=== PATIENT | male | born 1970 | race Caucasian/White ===

== ENCOUNTER 2017-05-09 08:40 | Inpatient (IN) | payer OTHER ==
[2017-05-09] MEDS ORDERED: Ondansetron INJ* 2 MG/ML VIAL IV ONE (09:01)
[2017-05-09] MEDS ORDERED: Morphine INJ* 10 MG/ML 1 ML CARPUJECT IV ONE (09:01)
[2017-05-09] MEDS ORDERED: NS 0.9% 1000 ML* 1,000 ML IV ONE (09:01)
[2017-05-09 09:26] LABS: ABS Basophils 0.1 10^3/ul (0-0.2); ABS Eosinophils 0.3 10^3/ul (0-0.6); ABS Lymphocytes 1.2 10^3/ul (1.0-4.8); ABS Monocytes 0.5 10^3/ul (0-0.8); ABS Neutrophils 5.1 10^3/ul (1.5-7.7); ABS Nucleated RBC 0 10^3/ul; Eosinophil % 4.2 % (0-6); Hematocrit 43 % (42-52); Hemoglobin 14.9 g/dl (14.0-18.0); Lymphocyte % 17.2 % (25-47); Mean Corpuscular HGB Conc 34 g/dl (31-36); Mean Corpuscular Hemoglobin 33 pg (27-31); Mean Corpuscular Volume 96 fL (80-94); Mean Platelet Volume 8.2 um3 (7.4-10.4); Nucleated Red Blood Cells % 0; Platelet Count 242 10^3/ul (150-450); Red Cell Distribution Width 13 % (10.5-15); White Blood Count 7.2 10^3/ul (3.5-10.8)
[2017-05-09 09:45] LABS: EGFR Non-African American 128.8 (>60)
[2017-05-09] MEDS ORDERED: Iohexol 300* (CONTRAST) 10 ML SDV IV ONE (09:56)
[2017-05-09 11:23] LABS: Urine Appearance Clear; Urine Blood 1+ (Negative); Urine Color Yellow; Urine Ketones 1+ (Negative); Urine Protein Negative (Negative); Urine Specific Gravity 1.011 (1.010-1.030); Urine Urobilinogen Negative (Negative)
--- NOTE | 2017-05-09 11:49 | RAD ---
Indication: Abdominal pain. Contrast: Administered 100.2 ml of OMNIPAQUE 300 mg/ml CT of the abdomen and pelvis was performed after oral and IV contrast administration. Coronal and sagittal reconstructed images were obtained. Comparison is made with the previous exam dated December 15, 2015. Lung bases demonstrate no pleural fluid, nodules or masses. Heart is of normal size without evidence of pericardial effusion. Liver is normal in size. No focal lesions or intrahepatic ductal dilatation is noted. Spleen is normal in size. The gallbladder demonstrates no calcified gallstones. No adrenal masses are noted. The kidneys demonstrate symmetric nephrograms without hydronephrosis. There are enlarging cystic masses which have increased in size since previous examination predominantly within the pancreatic head. Pancreatic calcifications are noted. Pancreatic duct dilatation is noted. The largest of these is noted in the uncinate process measuring up to 7.9 cm. This previously measured up to 4.5 cm. In the pancreatic head cystic lesions measures up to 6.8 and 5.5 cm which is also increased in size since previous exam. Aorta and inferior vena cava are unremarkable. No retroperitoneal lymphadenopathy is noted. CT of the pelvis demonstrates no dilated loops of bowel. The colon is filled with stool. The prostate and seminal vesicles are unremarkable. The bony structures are grossly unremarkable. IMPRESSION: Cystic lesions in the pancreatic head and uncinate process has increased in size since previous exam. Extensive pancreatic calcifications pancreatic duct dilatation is noted. This may represent pancreatic pseudocyst although cystic neoplasm is not totally excluded. This is superimposed upon chronic pancreatitis. Clinical correlation is suggested as these are enlarging since previous exam of 2015. No evidence of cholelithiasis is noted.
[2017-05-09] MEDS ORDERED: Morphine INJ* 2 MG/ML 1 ML CARPUJECT IV PRN (13:49)
[2017-05-09] MEDS ORDERED: Acetaminophen TAB* 325 MG PO PRN (13:49)
[2017-05-09] MEDS: NS 0.9% 1000 ML* 1,000 ML IV SCH ×2 (14:53→23:33)
[2017-05-09] MEDS ORDERED: Mouth Piece, Nicotine* 1 EACH CARTRIDGE INH PRN (17:18)
[2017-05-09] MEDS ORDERED: Docusate CAP* 100 MG PO PRN (17:20)
[2017-05-09] MEDS ORDERED: Magnesium Hydroxide LIQ* 30 ML UDC PO ONE (17:20)
[2017-05-09] MEDS ORDERED: Ondansetron INJ* 2 MG/ML VIAL IV PRN (18:08)
[2017-05-09] MEDS: Morphine INJ* 2 MG/ML 1 ML CARPUJECT IV PRN ×2 (18:10→22:21)
[2017-05-09] MEDS: Nicotine Inhaler* 10 MG AMP INH PRN ×2 (18:10→21:17)
[2017-05-09] MEDS: Docusate CAP* 100 MG PO SCH (21:12)
[2017-05-09] MEDS: Senna TAB PO SCH (21:13)
[2017-05-09] MEDS: Omeprazole CAP* 20 MG PO SCH (21:14)
--- NOTE | 2017-05-09 21:32 | HP ---
CC: Dr. Stevens * HISTORY AND PHYSICAL: DATE OF ADMISSION: 05/09/17 PRIMARY CARE PROVIDER: Unknown. CHIEF COMPLAINT: Abdominal pain. HISTORY OF PRESENT ILLNESS: Matheus Zarate is a 46-year-old male with history of chronic pancreatitis due to alcoholism as well as pancreatic pseudocyst for which the last time he was evaluated in the emergency department and admitted in 2015, who presented to the hospital today complaining of abdominal pain. The patient stated that he was drinking up to 2 pints of vodka a day, quit 6 weeks ago and started drinking beer only. The last time he drank 2 beers was 2 days ago. He stated that over the past 10 days he has been having intermittent nausea and vomiting, sensation of abdominal fullness and diffuse abdominal pain. He stated that he felt like he was constipated, but he had a bowel movement 2 days ago which appeared of normal brown coloring, but "grainy." Despite that he still continued to have diffuse abdominal pain and presented for evaluation. Here his lipase and amylase is elevated. His CT of the abdomen shows large pancreatic pseudocyst at over 7 cm, enlarged from prior in 2016 when it was evaluated at 4 cm. The patient is going to be placed on overnight observation with a diagnosis of acute on chronic pancreatitis. PAST MEDICAL HISTORY: 1. History of alcoholic pancreatitis with pancreatic pseudocyst in the past. 2. History of alcohol abuse. MEDICATIONS: None. ALLERGIES: No known drug allergies. FAMILY HISTORY: The patient is adopted. SOCIAL HISTORY: The patient has been an alcoholic and he drinks up to 1 to 2 pints of vodka a day and smokes less than a pack a day. He has been smoking for over 30 years. His surrogate decision person is his father, Bereket. The patient lives alone and is self employed as a prabhakar. REVIEW OF SYSTEMS: Please see history of present illness. All the remaining 12 systems were reviewed with the patient and were otherwise negative. PHYSICAL EXAMINATION GENERAL: The patient is a very pleasant 46-year-old male who is in no acute distress. Alert, awake and oriented x3. VITAL SIGNS: Blood pressure 130/80, heart rate 66 and regular, respiratory rate 18, oxygen saturation 99% on room air, temperature of 97.1. HEENT: Head: Atraumatic, normocephalic. Eyes: Pupils are equal, and reactive to light and accommodation. Oropharynx clear. Mucosa moist. NECK: Supple. No JVD. No bruits bilaterally. RESPIRATORY: Clear to auscultation bilaterally. CARDIOVASCULAR: Regular rate and rhythm. No murmur. ABDOMEN: Soft, diffusely tender mostly in the bilateral lower quadrants with no rebound, no guarding. Bowel sounds are present in all 4 quadrants. There is a small umbilical hernia on palpation that is nontender. The patient also has a rather large right inguinal hernia nontender to palpation. I did not attempt to reduce it. EXTREMITIES: There is no edema. Pulses are +2 bilaterally. There is no clubbing or cyanosis. SKIN: On evaluation of the skin, no ecchymotic areas or rashes noted. PSYCHIATRIC: Alert and oriented x3 with no evidence of anxiety or depression. LABORATORY DATA/DIAGNOSTIC STUDIES: Shows sodium 136, potassium 4.1, chloride 104, carbon dioxide 24, BUN 6, creatinine 0.66. Liver function tests were unremarkable. The patient's lipase was 448 and amylase of 188. CBC: White blood cell count 7.2, hemoglobin 14.9, hematocrit 43 and platelets of 242,000. Urinalysis positive for casts, squamous epithelial cells, trace blood and ketones. INR was 1.18. CT of the abdomen and pelvis, impression; "cystic lesions in the pancreatic head and uncinate process has increased in size since previous exam. Extensive pancreatic calcifications and pancreatic duct dilatation is noted. There is no present pancreatic pseudocyst, although cystic neoplasm is not totally excluded. This is superimposed upon chronic pancreatitis. Clinical correlation suggested as these are enlarging since previous exam in 2016. No evidence of cholelithiasis is noted." Furthermore, in the body of the report it was noted that previously the cyst measured 4.5 cm and currently is measuring 7.9 cm. The patient's EKG showed normal sinus bradycardia with heart rate of 54 beats per minute with J-point elevation. Otherwise, no significant ST changes. There was no old EKG available for comparison. ASSESSMENT AND PLAN: 1. In regards to the patient's alcohol abuse, the patient stated that he last drank beer 2 days ago, but he actually stopped drinking hard alcohol 6 weeks ago. At this point, I will ask social work job titles to see the patient in consultation. He has no symptoms of withdrawal. 2. In regards to patient's acute on chronic pancreatitis, the patient has extensive calcifications from his pancreas and his cyst is enlarged to almost double the size comparing to 2016. There is a question of possibility of malignancy. At this point, I will ask Dr. Stevens from Gastroenterology to see the patient in consultation. To treat the patient's chronic acute on chronic pancreatitis, patient is going to be placed on clear liquid diet with pain control. We will repeat lipase measurements in the morning. 3. Tobacco cessation. The patient was placed on a nicotine patch and he was consulted in regards to quitting for approximately 4 to 5 minutes during his admission. 4. For DVT prophylaxis, the patient is encouraged with ambulation and is low risk. TIME SPENT: Approximately 65 minutes was spent on admission of this patient, more than half that time was spent [id number] with the patient during the interview and physical exam. [id number]/[facility] #: [id number] JENNIFER
[2017-05-10] MEDS: Morphine INJ* 2 MG/ML 1 ML CARPUJECT IV PRN ×3 (04:07→22:07)
[2017-05-10] MEDS: Nicotine Inhaler* 10 MG AMP INH PRN ×4 (04:11→20:30)
[2017-05-10 05:20] LABS: ABS Basophils 0 10^3/ul (0-0.2); ABS Eosinophils 0.7 10^3/ul (0-0.6); ABS Lymphocytes 1.5 10^3/ul (1.0-4.8); ABS Monocytes 0.4 10^3/ul (0-0.8); ABS Neutrophils 2.3 10^3/ul (1.5-7.7); ABS Nucleated RBC 0 10^3/ul; Eosinophil % 14.5 % (0-6); Hematocrit 42 % (42-52); Hemoglobin 14.2 g/dl (14.0-18.0); Lymphocyte % 30.5 % (25-47); Mean Corpuscular HGB Conc 34 g/dl (31-36); Mean Corpuscular Hemoglobin 33 pg (27-31); Mean Corpuscular Volume 97 fL (80-94); Mean Platelet Volume 8.3 um3 (7.4-10.4); Nucleated Red Blood Cells % 0; Platelet Count 221 10^3/ul (150-450); Red Blood Count 4.31 10^6/ul (4.0-5.4); Red Cell Distribution Width 13 % (10.5-15); White Blood Count 4.9 10^3/ul (3.5-10.8)
[2017-05-10 05:35] LABS: EGFR Non-African American 128.8 (>60)
[2017-05-10] MEDS: Docusate CAP* 100 MG PO SCH ×2 (08:24→20:31)
[2017-05-10] MEDS: Omeprazole CAP* 20 MG PO SCH ×2 (08:24→20:30)
[2017-05-10] MEDS ORDERED: Nicotine PATCH 14 MG/24 HR* PATCH TRANSDERM SCH (09:00)
--- NOTE | 2017-05-10 11:39 | PN ---
Subjective Date of Service: 05/10/17 Interval History: HOSPITALIST PROGRESS NOTE Patient seen and examined at bedside. He feels a little better today. Abdominal pain is still present, but less intense. Tolerating clear liquids. Does not want to advance diet as he had setbacks in the past when he advanced to solid diet too fast. Denies N/V, +BM. Family History: Unchanged from Admission Social History: Unchanged from Admission Past Medical History: Unchanged from Admission Objective Active Medications: Acetaminophen (Tylenol Tab*) 650 mg PO Q6H PRN PRN Reason: FEVER/PAIN Device (Nicotine Mouth Piece*) 1 each INH .USE WITH NICOTROL PRN PRN Reason: CRAVING Last Admin: 05/09/17 18:09 Dose: 1 each Docusate Sodium (Colace Cap*) 100 mg PO BID [facility] Last Admin: 05/10/17 08:24 Dose: 100 mg Morphine Sulfate (Morphine Inj (Syringe)*) 2 mg IV Q4H PRN PRN Reason: PAIN Last Admin: 05/10/17 08:24 Dose: 2 mg Nicotine (Nicotine Inhaler*) 10 mg INH Q2H PRN PRN Reason: CRAVING Last Admin: 05/10/17 08:24 Dose: 10 mg Omeprazole (Prilosec Cap*) 20 mg PO BID [facility] Last Admin: 05/10/17 08:24 Dose: 20 mg Ondansetron HCl (Zofran Inj*) 4 mg IV Q6H PRN PRN Reason: NAUSEA/VOMITING Pharmacy Profile Note (Nicotine Patch Removal Note*) 1 note PATCH OFF 2100 [facility] Senna (Senokot Tab*) 2 tab PO BEDTIME [facility] Last Admin: 05/09/17 21:13 Dose: 2 tab Vital Signs - 8 hr 05/10/17 05/10/17 05/10/17 04:02 04:07 05:07 Temperature 97.3 F Pulse Rate 74 Respiratory 16 16 16 Rate Blood Pressure 139/89 (mmHg) O2 Sat by Pulse 98 Oximetry 05/10/17 05/10/17 07:41 08:24 Temperature 98.3 F Pulse Rate 78 Respiratory 16 16 Rate Blood Pressure 122/84 (mmHg) O2 Sat by Pulse 98 Oximetry Oxygen Devices in Use Now: None Appearance: Pleasant gentleman sitting up in bed in NAD. Eyes: No Scleral Icterus Ears/Nose/Mouth/Throat: Mucous Membranes Moist Neck: Trachea Midline Respiratory: Symmetrical Chest Expansion and Respiratory Effort, Clear to Auscultation Cardiovascular: NL Sounds; No Murmurs; No JVD, RRR Abdominal: - - Soft, mild diffuse tenderness, NG, NR, BS+ and increased, mild distension. R inguinal hernia, non tender Extremities: No Edema Neurological: Alert and Oriented x 3, NL Muscle Strength and Tone Result Diagrams: 05/10/17 05:06 05/10/17 05:06 Assess/Plan/Problems-Billing Assessment: Mr. Zarate is a 46yo M with PMH of ETOH abuse, chronic pancreatitis, who presented to ED wt c/o abdominal pain, found to have acute on chronic pancreatitis. - Patient Problems (1) Pancreatitis Comment: - Alcohol related. - Lipase trending down, symptoms improving, but patient reluctant to advance his diet at this point. - Continue pain management. (2) Pseudocyst of pancreas Code(s): K86.3 - PSEUDOCYST OF PANCREAS SNOMED Code(s): 645669480 Comment: - CT showed increase in size of cystic lesion since December 2015. Likely a pseudocyst, but cannot r/o cystic neoplasm. - Check MRCP. - GI consult requested. (3) ETOH abuse Code(s): F10.10 - ALCOHOL ABUSE, UNCOMPLICATED Comment: - He continues to drink. - No signs of withdrawal at this time. (4) DVT prophylaxis Comment: - SQ heparin. (5) Full code status Status and Disposition: Inpatient for management of pancreatitis.
[2017-05-10] MEDS: Heparin VIAL(*) 5000 UNITS/ML VIAL (FIVE THOUSAND) SUBCUT SCH ×2 (14:49→21:27)
--- NOTE | 2017-05-10 15:13 | RAD ---
HISTORY: MRI clearance. COMPARISON: None. FINDINGS: Frontal and lateral views of the orbits. There is no radiopaque foreign body attributable to the orbits. The orbital rims are intact. The sinuses are clear. The zygomatic arches are normal. IMPRESSION: No radiopaque foreign body attributable to the orbits.
--- NOTE | 2017-05-10 16:10 | RAD ---
Indication: Chronic pancreatitis. Image sequences: Axial and coronal T2, coronal 3-D heavily weighted T2-weighted images were obtained. There is marked pancreatic duct enlargement. Dilated side branches are noted. There may be a filling defect in the pancreatic duct measuring 3 mm. Calculi is not excluded. There are multiple cystic lesions in the pancreatic head. The measure approximately 6.1 cm, 7.1 cm and displaces enlarges the pancreatic head. The duodenum is displaced laterally. The common bile duct and common hepatic duct are not dilated. The liver is otherwise unremarkable. IMPRESSION: Marked pancreatic duct dilatation with dilated sidebranches as well. At least 3 large cysts are noted in the pancreatic head the largest measuring up to 7.1 cm with displacement of the duodenum towards the right. There may be calculi several pancreatic ducts.
--- NOTE | 2017-05-10 16:55 | CONS ---
CC: Dr. Medina GASTROENTEROLOGY CONSULTATION: DATE OF CONSULT: 05/10/17 REFERRING PHYSICIAN: Dr. Medina. HISTORY OF PRESENT ILLNESS: Thank you for asking me to see Mr. Zarate. As you know, he is a 46-year -old male with a history of alcohol abuse, who has had pancreatitis in the past. He was most recentl y hospitalized in 2016 with acute pancreatitis on top of chronic pancreatitis with a 4-cm pseudocyst noted on abdominal CAT scan. The patient states that he has been intermittently drinking since his l ast hospitalization up to 2 pints of vodka a day, but quit several weeks ago and has been drinking be er intermittently since. Apparently, over the past week or so, he has had some nausea, vomiting, and diffuse abdominal pain. He presented to the emergency room with ongoing issues and was noted to hav e an elevated lipase of 448 with an amylase of 188. The patient was placed on clear liquids. CT sca n of the abdomen revealed cystic lesions in the head and uncinate process of the pancreas, the larges t measuring 7 cm, extensive pancreatic calcifications consistent with chronic pancreatitis. The hudson ent states today that he is feeling much better. His amylase is down to 175. His vital signs have b een stable. There has been no fever. I have discussed the case with Dr. Medina and MRCP has been or dered for today to better delineate the pancreas. PAST MEDICAL HISTORY: Significant for chronic pancreatitis including pancreatic pseudocyst, history of alcohol abuse. MEDICATIONS: No medications at home. ALLERGIES: No known drug allergies. FAMILY HISTORY: Unknown as the patient is adopted. SOCIAL HISTORY: The patient is a smoker. He lives alone. Alcohol, as above. REVIEW OF SYSTEMS: A 10-point review of systems is performed and is negative. PHYSICAL EXAM: Mr. Zarate is a well appearing 46-year-old male. Temperature is 98.9, heart rate is 70, blood pressure 116/84. HEENT: There is no scleral icterus. Heart: Regular rate and rhythm. L ungs: Clear. Abdomen: Soft. There is mild tenderness in the epigastric and left and right upper q uadrant regions. Bowel sounds are present. There is no distention. Skin: Warm and dry. Neuro Exam : Grossly intact. Alert and oriented x3. LABORATORY DATA: Pertinent laboratory studies include normal liver function tests. Albumin of 3.5, l ipase of 175. BUN of 5 and creatinine of 0.6. Hematocrit of 42. IMPRESSION AND PLAN: Mr. Zarate has mild acute on chronic pancreatitis. He does have 3 pseudocysts noted, which have enlarged since prior CT scan back in 2016 and multiple pancreatic calcifications co nsistent with chronic pancreatitis. He is currently on clear liquids without increasing pain and wit h improvement in his lipase. I will continue clear liquids probably until noon tomorrow and then try to advance to low-fat diet. The patient will ultimately need to be set up for endoscopic ultrasound in [facility] to confirm the absence of any type of malignancy or neoplastic cells. The patient will be set up with the primary care physician, who may then either directly refer the patien t for EUS or refer to GI as an outpatient to make arrangements. [id number]/[facility] #: [id number]
[2017-05-10] MEDS: Senna TAB PO SCH (20:32)
[2017-05-10] MEDS ORDERED: Nicotine Patch Removal NOTE PATCH OFF SCH (21:00)
[2017-05-11] MEDS: Heparin VIAL(*) 5000 UNITS/ML VIAL (FIVE THOUSAND) SUBCUT SCH ×2 (05:41→14:21)
[2017-05-11 05:49] LABS: EGFR Non-African American 131.1 (>60)
[2017-05-11] MEDS: Omeprazole CAP* 20 MG PO SCH (07:40)
[2017-05-11] MEDS: Nicotine Inhaler* 10 MG AMP INH PRN (07:40)
[2017-05-11] MEDS: Docusate CAP* 100 MG PO SCH (07:41)
[2017-05-11 16:04] VITALS: BP 111/81
--- NOTE | 2017-05-12 07:46 | ED ---
Isauro Arredondo Angela, scribed for Stanley López MD on 05/09/17 at 0854 . Abdominal Pain/Male - HPI Summary HPI Summary: This pt is a 46 y/o male presenting to [facility] c/o intermittent left sided abd pain x10 days, worsening over the past 2 days. Pt has history of pancreatitis. Pt reports nausea and vomiting. He notes he has been unable to sleep or eat secondary to pain. He currently rates his pain 5/10 in severity and describes it as waxing and waning. Pt quit drinking alcohol 2 months ago. Denies drinking alcohol since then. PMHx includes inguinal hernia, worsening for the past month. - History of Current Complaint Chief Complaint: EDAbdPain Stated Complaint: ABD PAIN Time Seen by Provider: 05/09/17 08:47 Hx Obtained From: Patient Onset/Duration: Lasting Days, Still Present, Worse Since - 2 days ago Timing: Lasting Days Severity Currently: Moderate Pain Intensity: 5 Pain Scale Used: 0-10 Numeric Location: Other - left sided Radiates: No Aggravating Factor(s): Nothing Alleviating Factor(s): Nothing Associated Signs And Symptoms: Positive: Nausea, Vomiting. Negative: Fever, Diarrhea - Allergies/Home Medications Allergies/Adverse Reactions: Allergies Allergy/AdvReac Type Severity Reaction Status Date / Time No Known Allergies Allergy Verified 05/09/17 08:46 PMH/Surg Hx/FS Hx/Imm Hx GI History: Reports: Other GI Disorders - Pancreatitis Musculoskeletal History: Reports: Hx Arthritis - mild Sensory History: Reports: Hx Contacts or Glasses Opthamlomology History: Reports: Hx Contacts or Glasses Psychiatric History: Reports: Hx Depression, Hx Substance Abuse - Alcohol Denies: Hx Anxiety, Hx Attention Deficit Hyperactivity Disorder, Hx Eating Disorder, Hx Panic Disorder, Hx Post Traumatic Stress Disorder, Hx Inpatient Treatment, Hx Community Mental Health Tx, Hx Schizophrenia, Hx Bipolar Disorder , Hx Suicide Attempt, Hx of Violent Episodes Against Others, Other Psychiatric Issues/Disorders - Immunization History Date of Tetanus Vaccine: unknown Date of Influenza Vaccine: no Infectious Disease History: No Infectious Disease History: Denies: Hx Shingles, Traveled Outside the [place] in Last 30 Days - Family History Known Family History: Positive: Unknown - Pt is adopted - Social History Alcohol Use: Daily Alcohol Amount: last drink monday Substance Use Type: Reports: None Smoking Status (MU): Light Every Day Tobacco Smoker Type: Cigarettes Review of Systems Negative: Fever Eyes: Negative ENT: Negative Positive: Abdominal Pain, Vomiting, Nausea Musculoskeletal: Negative Skin: Negative Neurological: Negative All Other Systems Reviewed And Are Negative: Yes Physical Exam - Summary Physical Exam Summary: VITAL SIGNS: Reviewed. GENERAL: Patient is a well-developed and nourished male who is lying comfortable in the stretcher. Patient is not in any acute respiratory distress. HEAD AND FACE: Normocephalic and atraumatic. EYES: PERRLA, EOMI x 2, No injected conjunctiva. EARS: Hearing grossly intact. Ear canals and tympanic membranes are WNL. MOUTH: Oropharynx within normal limits. NECK: Supple, trachea is midline, no adenopathy, no JVD. CHEST: Symmetric, no tenderness at palpation LUNGS: Clear to auscultation bilaterally. No wheezing or crackles. CVS: RRR, S1 and S2 present, no murmurs or gallops appreciated. ABDOMEN: Soft. Left upper quadrant epigastric tenderness. No signs of distention. Positive bowel sounds. No rebound no guarding, and no masses palpated. No abdominal bruit or pulsations. : Inguinal hernia on the right side, easily reducible. EXTREMITIES: FROM in all major joints, no edema, no cyanosis or clubbing. NEURO: Alert and oriented x 3. No acute neurological deficits. Speech is normal. SKIN: Dry and warm Triage Information Reviewed: Yes Vital Signs On Initial Exam: Initial Vitals Temp Pulse Resp BP Pulse Ox 98.3 F 75 17 149/103 100 05/09/17 08:42 05/09/17 08:42 05/09/17 08:42 05/09/17 08:42 05/09/17 08:42 Vital Signs Reviewed: Yes Diagnostics - Vital Signs Vital Signs Temp Pulse Resp BP Pulse Ox 05/09/17 08:42 98.3 F 75 17 149/103 100 - Laboratory Result Diagrams: 05/09/17 09:05 05/09/17 09:05 Lab Statement: Any lab studies that have been ordered have been reviewed, and results considered in the medical decision making process. - CT Abdomen/Pelvis CT CT Interpretation: Positive (See Comments) - IMPRESSION: Cystic lesions in the pancreatic head and uncinate process has increased in size since previous exam. Extensive pancreatic calcifications pancreatic duct dilatation is noted. This may represent pancreatic pseudocyst although cystic neoplasm is not totally excluded. This is superimposed upon chronic pancreatitis. Clinical correlation is suggested as these are enlarging since previous exam of 2016. No evidence of cholelithiasis is noted. Dr. López has reviewed this radiology report. CT Interpretation Completed By: Radiologist - EKG 09:07 Cardiac Rate: Bradycardia EKG Rhythm: Sinus Bradycardia - at 54 bpm EKG Interpretation: No ST elevations. Early repolarization. Re-Evaluation - Re-Evaluation First Eval Re-Evaluation Time: 11:40 Comment: I reviewed the labs and CT results with the pt. I discussed the plan to admit with the pt. Pt agrees to admission. Abdominal Pain Fem Course/Dx - Course Assessment/Plan: This pt is a 46 y/o male presenting to [facility] c/o intermittent left sided abd pain x10 days, worsening over the past 2 days. Pt has history of pancreatitis. Pt reports nausea and vomiting. He notes he has been unable to sleep or eat secondary to pain. He currently rates his pain 5/10 in severity and describes it as waxing and waning. Pt quit drinking alcohol 2 months ago. Denies drinking alcohol since then. PMHx includes inguinal hernia, worsening for the past month. Test results without any significant abnormalities except for increased amylase and lipase. Abdomen/pelvis CT: Cystic lesions in the pancreatic head and uncinate process has increased in size since previous exam. Extensive pancreatic calcifications pancreatic duct dilatation is noted. This may represent pancreatic pseudocyst although cystic neoplasm is not totally excluded. This is superimposed upon chronic pancreatitis. Clinical correlation is suggested as these are enlarging since previous exam of 2016. In the ED course the pt was given IV fluids, Zofran for nausea, morphine for the pain. Since the pt has acute pancreatitis and pseudocyst in the pancreas, I discussed the case with Dr. Thompson, hospitalist, who accepted the pt for admission. Pt is hemodynamically stable, alert and oriented x3. - Diagnoses Provider Diagnoses: Acute pancreatitis, Pseudocyst of pancreas - Provider Notifications Discussed Care Of Patient With: Yenni Thompson Time Discussed With Above Provider: 11:36 Instructed by Provider To: Other - I discussed pt care with Dr. Thompson, hospitalist, who has agreed to admit the pt. Discharge - Sign-Out/Discharge Documenting (check all that apply): Discharge - admit to [facility] - Discharge Plan Condition: Stable Disposition: ADMITTED TO [facility] documentation as recorded by the Isauro godoy Angela accurately reflects the service I personally performed and the decisions made by , Stanley López MD.
--- NOTE | 2017-05-12 08:51 | DS ---
CC: Dr. Harris; Dr. Delores Trujillo. DISCHARGE SUMMARY: DATE OF ADMISSION: 05/09/17. DATE OF DISCHARGE: 05/11/17. NEW PRIMARY CARE PROVIDER: Dr. Harris. DISCHARGE DIAGNOSES: 1. Acute on chronic pancreatitis. 2. Alcohol abuse. 3. Pancreatic pseudocyst. 4. Tobacco abuse. MEDICATION LIST: 1. Acetaminophen 62 mg p.o. q.6 hours p.r.n. pain or fever. 2. Omeprazole 20 mg p.o. daily. 3. Pancrelipase 24,000 units p.o. t.i.d. with meals. 4. Thiamine 100 mg p.o. daily. HOSPITAL COURSE: Mr. Zarate is a 46-year-old male here with past medical history as stated above alexsander t presented to the emergency room with complaints of abdominal pain. The patient usually drinks two pints of vodka a day. Six weeks ago, he started to drink beers only. He developed abdominal pain 10 days ago with nausea and vomiting and his symptoms worsened and he came to the emergency room for fu rther evaluation. Lab tests showed elevation of his lipase at [address] of the abdomen and pelvis s howed cystic lesions in the pancreatic head and uncinate process that have increased in size since pr evious exam in December 2015. Extensive pancreatic calcifications with pancreatic duct dilatation. T his may represent pancreatic pseudocyst although cystic neoplasm is not totally excluded. This is sup erimposed upon chronic pancreatitis. The patient was admitted, kept NPO and received supportive treatment with IV hydration and pain medic ations. He had improvement of his symptoms. His lipase trended down and he tolerated a clear liquid diet. Due to his CT findings, a consultation was requested with Gastroenterology (Dr. Trujillo) and her recomm endation was for MRCP, that showed marked pancreatic duct dilatation with dilated side branches as we ll. At least three large cysts are noted in the pancreatic head, the largest measuring up to 7.0 cm with displacement of the duodenum towards the right. There may be calculi in several pancreatic duct s. Dr. Trujillo's impression was that Mr. Zarate presented with mild acute on chronic pancreatitis. He does have three pseudocysts noted which have enlarged since prior CT scan back in 2005 and multiple pancreatic calcifications consistent with chronic pancreatitis. She agreed with the management with the clear liquid diet to advance to a low fat and she felt that the patient will ultimately need to b e set up for endoscopic ultrasound in [place] or [place] to confirm the absence of any type of mal ignancy or neoplastic cells. This can be set up by his primary care physician, who may either direct ly refer the patient for endoscopic ultrasound or refer him to her [facility] as an outpatient to make arrangements. The patient had improvement of his symptoms. He was able to tolerate a low-fat diet and he was felt to be stable for discharge. The patient received extensive medication regarding the need for alcohol cessation and he states that he will try. He understands the risks and benefits of his decision and he states that he is not int erested in rehab information at this point. PHYSICAL EXAMINATION: Vital Signs: Temperature 98.3, heart rate is 64, respiratory rate 18, oxygen saturation 99% on room air, blood pressure is 111/81. General: The patient is a pleasant gentleman, sitting up in the bed in no acute distress. CVS: Normal S1, S2. Regular rate and rhythm. Chest: Breath sounds bilaterally with no added sounds. Abdomen is soft with mild distention. Palpable mass on the right upper quadrant, nontender. Bowel sounds are present. Extremities: No edema. Neuro: H e is alert and oriented x3, able to move all 4 extremities. DIET: Low-fat diet. ACTIVITIES: As tolerated. DISPOSITION: To home. STATUS WHILE IN THE HOSPITAL: Inpatient. Please keep in mind, this is a summarized version of this p atient's hospital stay. If you need more information, please feel free to call me at [phone] or please obtain the full medical records. TIME SPENT: Approximately 45 minutes was spent to complete this discharge. [id number]/[facility] #: [id number]
== END 2017-05-11 16:00 | disposition home or self-care (01) | DRG 282 ==
LOC: ED 08:40 → MEDTELE 12:55 → OBSVTOIN 12:55 → INTOOBSV 12:55 → OBSVTOIN 05-10 11:33 → MED 05-10 19:35
PROVIDERS: ADMIT Internal Medicine; ATTEND Internal Medicine
DX: K85.20 Alcohol induced acute pancreatitis without necrosis or infection (principal); K86.3 Pseudocyst of pancreas; K86.0 Alcohol-induced chronic pancreatitis; M19.90 Unspecified osteoarthritis, unspecified site; F32.9 Major depressive disorder, single episode, unspecified; F17.210 Nicotine dependence, cigarettes, uncomplicated; R00.1 Bradycardia, unspecified; F10.10 Alcohol abuse, uncomplicated; Y90.9 Presence of alcohol in blood, level not specified; K40.90 Unilateral inguinal hernia, without obstruction or gangrene, not specified as recurrent
CPT/HCPCS: 36415; 70030; 74177; 74181; 76376; 80053; 81003; 81015; 82150; 82550; 83605; 83690; 83735; 83880; 84484; 85025; 86140; 87040; 87086; 93005; 99284; 99406; A9270-GY; J1644; J2270; J2405; Q9967

== ENCOUNTER 2018-03-19 15:35 | Inpatient (IN) | payer OTHER ==
[2018-03-19] MEDS ORDERED: Morphine VIAL* 10 MG/ML 1 ML VIAL IV ONE ×2 (17:39→18:33)
[2018-03-19] MEDS ORDERED: Ondansetron INJ* 2 MG/ML VIAL IV ONE (17:39)
--- NOTE | 2018-03-19 17:40 | ED ---
GI/ HPI - HPI Summary HPI Summary: 47-year-old female presents with abdominal pain. he states that is feels like he's had pancreatits in the past. He states is greatest in the epigastric region. He states he's not had a bowel movement in 5 days. He states he's had no appetite. He sees been barely able to drink. He denies any urinary symptoms. He admits to nausea but no vomiting. He states it started after he ate some pasta and drank some wine. He states he drinks about twice a week. His only medications he takes are an antacid and enzymes for his pancreas. He denies any chest pain or shortness of breath. No fevers. No cough. - History of Current Complaint Chief Complaint: EDAbdPain Time Seen by Provider: 03/19/18 17:24 Stated Complaint: ABD PAIN Pain Intensity: 10 - Additional Pertinent History Primary Care Physician: [place] - Allergy/Home Medications Allergies/Adverse Reactions: Allergies Allergy/AdvReac Type Severity Reaction Status Date / Time No Known Allergies Allergy Verified 03/19/18 15:55 PMH/Surg Hx/FS Hx/Imm Hx Endocrine/Hematology History: Denies: Hx Diabetes Cardiovascular History: Denies: Hx Hypertension, Hx Pacemaker/ICD GI History: Reports: Other GI Disorders - Pancreatitis History: Denies: Hx Renal Disease Musculoskeletal History: Reports: Hx Arthritis - mild Sensory History: Reports: Hx Contacts or Glasses Denies: Hx Hearing Aid Opthamlomology History: Reports: Hx Contacts or Glasses Psychiatric History: Reports: Hx Depression, Hx Substance Abuse - Alcohol Denies: Hx Anxiety, Hx Attention Deficit Hyperactivity Disorder, Hx Eating Disorder, Hx Panic Disorder, Hx Post Traumatic Stress Disorder, Hx Inpatient Treatment, Hx Community Mental Health Tx, Hx Schizophrenia, Hx Bipolar Disorder , Hx Suicide Attempt, Hx of Violent Episodes Against Others, Other Psychiatric Issues/Disorders - Immunization History Date of Tetanus Vaccine: unknown Date of Influenza Vaccine: no Infectious Disease History: No Infectious Disease History: Denies: Hx Shingles, Traveled Outside the [place] in Last 30 Days - Family History Known Family History: Positive: Unknown - Pt is adopted - Social History Alcohol Use: Daily Alcohol Amount: last drink monday Substance Use Type: Reports: None Smoking Status (MU): Light Every Day Tobacco Smoker Type: Cigarettes Amount Used/How Often: 1/2-1 ppd Review of Systems Negative: Fever Negative: Chest Pain Negative: Shortness Of Breath Positive: Abdominal Pain, Vomiting, Nausea. Negative: Diarrhea All Other Systems Reviewed And Are Negative: Yes Physical Exam Triage Information Reviewed: Yes Vital Signs On Initial Exam: Initial Vitals Temp Pulse Resp BP Pulse Ox 99.1 F 95 16 131/99 99 03/19/18 15:52 03/19/18 15:52 03/19/18 15:52 03/19/18 15:52 03/19/18 15:52 Vital Signs Reviewed: Yes Appearance: Positive: Well-Appearing Skin: Positive: Warm, Dry Head/Face: Positive: Normal Head/Face Inspection Eyes: Positive: Normal, Conjunctiva Clear ENT: Positive: Pharynx normal Respiratory/Lung Sounds: Positive: Clear to Auscultation, Breath Sounds Present Cardiovascular: Positive: Normal, RRR Abdomen Description: Positive: Soft, Other: - diffuse abdominal tenderness greatest in epigastric Bowel Sounds: Positive: Present Musculoskeletal: Positive: Normal Neurological: Positive: Normal Psychiatric: Positive: Normal Diagnostics - Vital Signs Vital Signs Temp Pulse Resp BP Pulse Ox 03/19/18 17:19 99.5 F 80 20 144/107 100 03/19/18 15:52 99.1 F 95 16 131/99 99 - Laboratory Result Diagrams: 03/19/18 17:38 03/19/18 17:38 Lab Statement: Any lab studies that have been ordered have been reviewed, and results considered in the medical decision making process. - CT abd CT Interpretation Completed By: Radiologist Summary of CT Findings: IMPRESSION: 1. Right inguinal hernia containing multiple loops of nondilated bowel. This. represents a new finding. 2. Findings of chronic pancreatitis with multiple pseudocysts, several of which. are larger than on the most recent comparison study. 3. No other acute intra- abdominal findings. Re-Evaluation - Re-Evaluation First Eval Re-Evaluation Time: 19:00 Change: Improved Comment: feeling better Second Eval Re-Evaluation Time: 21:14 Comment: discussed results hernia, patient states has had it for 10 years and will not do surgery until pancreaetitis resolved. denies any pain at the area, hernia is reducible GIGU Course/Dx - Course Course Of Treatment: 47-year-old female presents with abdominal pain. he states that is feels like he's had pancreatits in the past. He states is greatest in the epigastric region. He states he's not had a bowel movement in 5 days. He states he's had no appetite. He sees been barely able to drink. He denies any urinary symptoms. He admits to nausea but no vomiting. He states it started after he ate some pasta and drank some wine. He states he drinks about twice a week. His only medications he takes are an antacid and enzymes for his pancreas. He denies any chest pain or shortness of breath. No fevers. No cough. On exam tenderness of the epigastric region. Positive rebound. Patient is very uncomfortable. wbc normal. amylase and lipase elevated. CT shows chronic pancreatitis. also shows hernia which is reducible and patient states has had for [address] rich that can follow up in office about hernia. discussed with hospitalist who agree to admit. - Diagnoses Differential Diagnoses - Male: Gastroenteritis (Viral), Pancreatitis, Urinary Tract Infection Provider Diagnoses: Pancreatitis Discharge - Sign-Out/Discharge Documenting (check all that apply): Patient Departure - Discharge Plan Condition: Stable Disposition: ADMITTED TO [facility] Referrals: Jenn Oliver MD [Primary Care Provider] - - Billing Disposition and Condition Condition: STABLE Disposition: Admitted to [facility]
[2018-03-19 17:45] LABS: ABS Basophils 0.1 10^3/ul (0-0.2); ABS Eosinophils 0.2 10^3/ul (0-0.6); ABS Lymphocytes 1.4 10^3/ul (1.0-4.8); ABS Monocytes 0.6 10^3/ul (0-0.8); ABS Neutrophils 6.2 10^3/ul (1.5-7.7); ABS Nucleated RBC 0 10^3/ul; Eosinophil % 1.9 %; Hematocrit 47 % (42-52); Hemoglobin 16.3 g/dl (14.0-18.0); Lymphocyte % 16.6 %; Mean Corpuscular HGB Conc 35 g/dl (31-36); Mean Corpuscular Hemoglobin 33 pg (27-31); Mean Corpuscular Volume 94 fL (80-94); Mean Platelet Volume 8.1 fL (7.4-10.4); Nucleated Red Blood Cells % 0.1; Platelet Count 301 10^3/ul (150-450); Red Cell Distribution Width 15 % (10.5-15); White Blood Count 8.5 10^3/ul (3.5-10.8)
[2018-03-19] MEDS: NS 0.9% 1000 ML** 2,000 ML IV ONE (17:48)
[2018-03-19 18:05] LABS: Albumin 4.3 g/dL (3.2-5.2); Albumin/Globulin Ratio 1.5 (1-3); BUN/Creatinine Ratio 19.5 (8-20); C Reactive Protein 26.07 mg/L (<8.01); Calcium 9.7 mg/dL (8.6-10.3); EGFR African American 129.9 (>60); EGFR Non-African American 107.4 (>60); Globulin 2.8 g/dL (2-4); Total Bilirubin 0.5 mg/dL (0.2-1.0); Total Protein 7.1 g/dL (6.4-8.9)
[2018-03-19] MEDS ORDERED: Iohexol 300* (CONTRAST) 10 ML SDV IV ONE (18:54)
[2018-03-19] MEDS ORDERED: Nicotine Inhaler* 10 MG AMP INH ONE (19:29)
[2018-03-19] MEDS ORDERED: Acetaminophen TAB* 325 MG PO PRN (22:17)
[2018-03-19] MEDS ORDERED: Ondansetron INJ* 2 MG/ML VIAL IV PRN (22:17)
[2018-03-19] MEDS ORDERED: Folic Acid TAB* 1 MG PO ONE (22:22)
[2018-03-19] MEDS ORDERED: Pantoprazole IV* 40 MG IV SCH (23:00)
[2018-03-20] MEDS ORDERED: Mouth Piece, Nicotine* 1 EACH CARTRIDGE ONE (00:01)
[2018-03-20] MEDS: Thiamine TAB* 100 MG TAB PO SCH ×2 (00:07→08:00)
[2018-03-20] MEDS: Morphine VIAL* 10 MG/ML 1 ML VIAL IV PRN ×2 (00:07→05:30)
[2018-03-20] MEDS: NS 0.9% 1000 ML** 1,000 ML IV SCH ×4 (00:12→19:30)
[2018-03-20] MEDS ORDERED: Morphine INJ* 2 MG/ML 1 ML SYRINGE (TWO MG - NEW SYRINGE VERSION) IV ONE (00:26)
[2018-03-20] MEDS ORDERED: Morphine VIAL* 4 MG/ML VIAL (1 ml vial) IV ONE (00:26)
--- NOTE | 2018-03-20 00:27 | HP ---
CC: Dr. Oliver * HISTORY AND PHYSICAL: DATE OF ADMISSION: 03/19/18 PROVIDER: Henrik Hays NP PRIMARY CARE PROVIDER: Dr. Oliver. ATTENDING PHYSICIAN WHILE IN THE HOSPITAL: Dr. Helm * (dictated by Henrik Hays NP). CHIEF COMPLAINT: Abdominal pain. HISTORY OF PRESENT ILLNESS: Mr. Zarate is a 47-year-old male with a past medical history significant for pancreatitis with pseudocyst, alcohol abuse; who presented to the emergency room with progressively worsening abdominal pain. The patient reports that he has had abdominal pain for the past 5 days, progressively worse, today being the worst. He does report nausea and vomiting. He does report occasional chills. He does report that he had a large amount of alcohol 4 to 5 days ago when he drank 4 large glasses of wine. He states since then that exacerbated his abdominal pain. He denies any vomiting or blood. Denies any black or tarry stools. Denies any fevers. Denies any chest pain, edema, cough, or hemoptysis. He does report mild shortness of breath with abdominal pain. He does report nausea and vomiting. Denies any diarrhea. Does report midepigastric and midabdominal pain that radiates to his back. Denies any gross hematuria, dysuria, focal weakness, or sensory loss. Denies any dysphagia, arthralgias, myalgias, rashes, lesions, psychosis, or anxiety. Due to the abdominal pain and increased lipase levels and CT showing acute pancreatitis, we were asked to see and evaluate the patient for admission. PAST MEDICAL HISTORY: 1. Chronic alcoholic pancreatitis with pancreatic pseudocyst. 2. Alcohol abuse. HOME MEDICATIONS: 1. Creon 2400 units p.o. t.i.d. with meals. 2. Omeprazole 20 mg p.o. daily. ALLERGIES: No known drug allergies. FAMILY HISTORY: Unknown. The patient was adopted. SOCIAL HISTORY: The patient reports that he drinks 2 to 3 times a week where he has 2 to 3 mixed drinks. Smokes a half a pack a day. Denies any illicit drug use. He works part-time as a manager environmental affairs. He is single. He lives with 3 roommates. He is a full code. Surrogate decision maker in the event he is unable to make his own decisions is his father. REVIEW OF SYSTEMS: Review of 14-systems was completed, positive as per the HPI , all others were negative. PHYSICAL EXAMINATION GENERAL: At this time, Mr. Zarate is a 47-year-old male. He is resting in the stretcher in the emergency room. He appears to be in mild discomfort. He is not in any acute distress. VITAL SIGNS: Blood pressure 143/96, heart rate is 69, respirations are 16, O2 saturation is 97%, and temperature was 99.5. HEENT: Head is atraumatic and normocephalic. Eyes: EOMs are intact. Sclerae anicteric and not pale. Oral mucosa appear to be moist. No oropharyngeal erythema. NECK: Supple. LUNGS: Clear to auscultation bilaterally. No wheezes, rales, or rhonchi. CARDIAC: S1 and S2. Regular rate and rhythm. No murmurs, rubs, or gallops. ABDOMEN: Mildly distended, tender with diffuse tenderness. Bowel sounds are present x4. EXTREMITIES: Pedal pulses are +2 bilaterally. He is able to move all 4 extremities with 5/5 strength. There is no clubbing or cyanosis. No edema. NEUROLOGIC: He is awake, alert, and oriented x3. Speech is clear. Thought process is intact. No gross focal deficits. SKIN: Intact. LABORATORY DATA AND DIAGNOSTIC STUDIES: WBCs are 8.5, RBCs 5.0, hemoglobin 16.3, hematocrit is 47, platelet count was 301. Sodium 135, potassium 4.0, chloride 101, carbon dioxide was 21, anion gap of 13, BUN was 15, creatinine 0.77. Glucose was 147, lactic acid 1.6, calcium 9.7, AST were 10, ALT were 6. C-reactive protein 26.07. Amylase was 268 and lipase 371. Urinalysis is currently pending. He had a CT of the abdomen and pelvis. Radiologist Impression: Right inguinal hernia containing multiple loops of nondilated bowel. This represents a new finding. Findings of chronic pancreatitis with multiple pseudocysts with several that are larger than most recent comparison studies. No other acute intraabdominal findings. ASSESSMENT AND PLAN: Mr. Zarate is a 47-year-old male with a past medical history of chronic pancreatitis and pseudocysts and alcohol abuse who presented to the emergency room with acute worsening abdominal pain. He will be admitted under observation for: 1. Acute on chronic pancreatitis. I suspect this is related to alcohol abuse. The patient reports last drinking 4 to 5 days where he had 4 large glasses of wine at that time. Since then has had abdominal pain that has progressively worsened. I will place him on normal saline IV at 125 cc per hour. He can have clear liquid diet as tolerated. I will give him morphine 2 mg q.2 hours as needed for pain. He can have Zofran for nausea. I will give him Protonix IV and will monitor him overnight. He can advance his diet as tolerated. 2. Right inguinal hernia. The patient has no acute pain at this time. I would recommend that the patient have a surgical consult as an outpatient. 3. Nicotine dependence. I will place the patient on nicotine patch. 4. DVT prophylaxis. I encouraged ambulation. 5. Diet. FEN. He can have clear liquid diet. 6. Code status. He is a full code. TIME SPENT: Time spent on this admission was 45 minutes, greater than half that time was spent [id number] with the patient obtaining my history and physical. The other half of the time was spent going over with my plan of care and implementing my plan of care. I have discussed with my attending Dr. Helm, she is in agreement with my plan. HENRIK HAYS, LAURY [id number]/[facility] #: [id number] JENNIFER
[2018-03-20] MEDS ORDERED: Morphine VIAL* 4 MG/ML VIAL (1 ml vial) ONE (00:32)
[2018-03-20 03:20] LABS: Urine Appearance Cloudy; Urine Bacteria Absent (Absent); Urine Bilirubin Negative (Negative); Urine Blood Negative (Negative); Urine Color Yellow; Urine Glucose Negative (Negative); Urine Ketones 2+ (Negative); Urine Nitrite Negative (Negative); Urine Protein 2+(100 mg/dL) (Negative); Urine Red Blood Cell Trace(0-2/hpf) (Absent); Urine Specific Gravity > 1.060 (1.010-1.030); Urine Urobilinogen Positive (Negative); Urine White Blood Cell Trace(0-5/hpf) (Absent)
[2018-03-20 07:07] LABS: ABS Basophils 0.1 10^3/ul (0-0.2); ABS Eosinophils 0.2 10^3/ul (0-0.6); ABS Lymphocytes 1.5 10^3/ul (1.0-4.8); ABS Monocytes 0.4 10^3/ul (0-0.8); ABS Neutrophils 2.4 10^3/ul (1.5-7.7); ABS Nucleated RBC 0 10^3/ul; Eosinophil % 4.6 %; Hematocrit 40 % (42-52); Hemoglobin 13.7 g/dl (14.0-18.0); Lymphocyte % 33.1 %; Mean Corpuscular HGB Conc 34 g/dl (31-36); Mean Corpuscular Hemoglobin 33 pg (27-31); Mean Corpuscular Volume 95 fL (80-94); Mean Platelet Volume 8.2 fL (7.4-10.4); Nucleated Red Blood Cells % 0.1; Platelet Count 217 10^3/ul (150-450); Red Blood Count 4.23 10^6/ul (4.00-5.40); Red Cell Distribution Width 15 % (10.5-15); White Blood Count 4.5 10^3/ul (3.5-10.8)
[2018-03-20 07:16] LABS: BUN/Creatinine Ratio 17.5 (8-20); Calcium 8.7 mg/dL (8.6-10.3); EGFR African American 183.8 (>60); EGFR Non-African American 151.9 (>60); HDL Cholesterol 26.1 mg/dL; Potassium 4.1 mmol/L (3.5-5.0)
[2018-03-20] MEDS: Morphine INJ* 2 MG/ML 1 ML SYRINGE (TWO MG - NEW SYRINGE VERSION) IV PRN ×4 (08:09→23:34)
[2018-03-20] MEDS: Nicotine Inhaler* 10 MG AMP INH PRN ×4 (09:58→23:38)
[2018-03-20] MEDS ORDERED: oxyCODONE TAB* 5 MG TAB PO PRN ×2 (13:17→15:59)
--- NOTE | 2018-03-20 13:24 | PN ---
Subjective Date of Service: 03/20/18 Interval History: Pain better. No new c/o. Still needs MS. Objective Active Medications: Acetaminophen (Tylenol Tab*) 650 mg PO Q4H PRN PRN Reason: FEVER/PAIN Sodium Chloride (Ns 0.9% 1000 Ml) 1,000 mls @ 60 mls/hr IV PER [facility] Morphine Sulfate (Morphine Inj ((Syringe))*) 2 mg IV Q2H PRN PRN Reason: PAIN Last Admin: 03/20/18 13:00 Dose: 2 mg Nicotine (Nicotine Inhaler*) 10 mg INH Q2H PRN PRN Reason: CRAVING Last Admin: 03/20/18 13:00 Dose: 10 mg Ondansetron HCl (Zofran Inj*) 4 mg IV Q6H PRN PRN Reason: NAUSEA/VOMITING Last Admin: 03/20/18 00:29 Dose: 4 mg Oxycodone HCl (Roxycodone Tab*) 5 mg PO Q4H PRN PRN Reason: PAIN Thiamine HCl (Vitamin B-1 Tab*) 100 mg PO DAILY [facility] Last Admin: 03/20/18 08:00 Dose: 100 mg Vital Signs - 8 hr 03/20/18 03/20/18 03/20/18 05:30 07:54 08:00 Temperature Pulse Rate Respiratory 20 18 18 Rate Blood Pressure (mmHg) O2 Sat by Pulse Oximetry 03/20/18 03/20/18 03/20/18 08:09 08:15 09:36 Temperature 98.3 F Pulse Rate 77 Respiratory 18 18 18 Rate Blood Pressure 126/82 (mmHg) O2 Sat by Pulse 98 Oximetry 03/20/18 03/20/18 11:20 13:00 Temperature 98.6 F Pulse Rate 74 Respiratory 16 18 Rate Blood Pressure 112/74 (mmHg) O2 Sat by Pulse 97 Oximetry Oxygen Devices in Use Now: None Appearance: Alert, sitting up in bed. In good spirits. Looks comfortable. Eyes: No Scleral Icterus Abdominal: No Hepatosplenomegaly, - - Nl BS, mild tenderness. Extremities: No Edema, No Clubbing, Cyanosis, - Skin: No Rash or Ulcers, No Nodules or Sclerosis, - Neurological: Alert and Oriented x 3, NL Sensation Result Diagrams: 03/20/18 06:29 03/20/18 06:29 Assess/Plan/Problems-Billing Assessment: - Patient Problems (1) Pancreatitis Current Visit: No Status: Acute Priority: High Code(s): K85.9 - ACUTE PANCREATITIS, UNSPECIFIED * DO NOT USE * SNOMED Code(s): 58424468 Comment: Chronic pancreatitis, acaute exacerbation due to alcohol intake. Pt may try oral oxycodone for pain. Reduce IV fluids, continue clear liquid diet until discharge. Pt understands that one drink of alocohol is too much for him. Continue enzymes tx at home on diet. (2) Tobacco dependence Current Visit: No Status: Acute Code(s): F17.200 - NICOTINE DEPENDENCE, UNSPECIFIED, UNCOMPLICATED SNOMED Code(s): 82587213 Comment: NRT prescribed.
[2018-03-21] MEDS: Thiamine TAB* 100 MG TAB PO SCH (09:27)
[2018-03-21] MEDS: Nicotine Inhaler* 10 MG AMP INH PRN (09:28)
[2018-03-21] MEDS: Morphine INJ* 2 MG/ML 1 ML SYRINGE (TWO MG - NEW SYRINGE VERSION) IV PRN (09:28)
--- NOTE | 2018-03-21 11:07 | PN ---
"Progress Note - Progress Note Date of Service: 03/21/18 Note: Confidential Drug Utilization Report Search Terms: aashish huang, 1970 Search Date: 03/21/2018 11:04:49 AM The Drug Utilization Report below displays all of the controlled substance prescriptions, if any, that your patient has filled in the last twelve months. The information displayed on this report is compiled from pharmacy submissions to the Department, and accurately reflects the information as submitted by the pharmacies. This report was requested by: Roby Patel | Reference #: [id number] There are no results for the search terms that you entered."
[2018-03-21 11:25] VITALS: BP 120/86
[2018-03-21] MEDS ORDERED: Pantoprazole TAB * 40 MG TAB PO SCH (12:00)
[2018-03-21] MEDS ORDERED: Pancrelipase CAP* 5,000 UNITS CAP PO SCH (12:00)
--- NOTE | 2018-03-21 19:50 | DS ---
CC: Dr. Jenn Oliver * DISCHARGE SUMMARY: DATE OF ADMISSION: 03/20/18 DATE OF DISCHARGE: 03/21/18 HISTORY AND HOSPITAL COURSE: This 47-year-old man came presenting with abdominal pain. He has a history of pancreatitis with pseudocyst. He has a markedly abnormal CT scan of the pancreas which is really pretty stable. His lipase on admission was 371. It was not repeated. His clinical course was benign. He had fair improvement. This really followed the pattern of his previous 4 episodes. I think there was an episode in September, so he was in the emergency room and was not admitted. Other than that this would have been the lowest lipase elevation for which he had been admitted. We will make sure he could tolerate a low fat lunch before he goes home. He was given supplies of the prescriptions for pancrelipase and omeprazole as well as 24 oxycodone 10 mg tablets to use p.r.n. FINAL DIAGNOSES: 1. Chronic pancreatitis. 2. Tobacco abuse. DISCHARGE MEDICATIONS: 1. Oxycodone 10 mg every 4 hours p.r.n. #24. 2. Thiamine 100 mg daily. 3. Omeprazole 20 mg daily. 4. Pancrelipase 24,000 units t.i.d. with meals. CONDITION ON DISCHARGE: Improved. DISPOSITION ON DISCHARGE: Discharge home. [id number]/[facility] #: [id number] JENNIFER
== END 2018-03-21 14:20 | disposition home or self-care (01) | DRG 282 ==
LOC: ED 15:35 → MED 22:17 → OBSVTOIN 03-20 14:21
PROVIDERS: ADMIT Internal Medicine; ATTEND Internal Medicine
DX: K85.20 Alcohol induced acute pancreatitis without necrosis or infection (principal); K86.3 Pseudocyst of pancreas; K86.0 Alcohol-induced chronic pancreatitis; F17.210 Nicotine dependence, cigarettes, uncomplicated; F10.10 Alcohol abuse, uncomplicated; K40.90 Unilateral inguinal hernia, without obstruction or gangrene, not specified as recurrent; Z79.899 Other long term (current) drug therapy
CPT/HCPCS: 36415; 74177; 80048; 80053; 80061; 81003; 81015; 82150; 83605; 83690; 85025; 86140; 87086; 99284; A9270-GY; J2270; J2405; Q9967

== ENCOUNTER 2018-05-17 05:06 | Emergency (ER) | payer OTHER ==
[2018-05-17] MEDS ORDERED: Morphine 4 MG/ML VIAL (1 ml) 4 MG/ML VIAL IV ONE (05:28)
[2018-05-17] MEDS ORDERED: NS 0.9% 1000 ML** 1,000 ML IV ONE (05:28)
[2018-05-17] MEDS ORDERED: Metoclopramide IV* 5 MG/ML 2 ML VIAL IV SLOW PU ONE (05:28)
--- NOTE | 2018-05-17 05:41 | ED ---
Abdominal Pain/Male - HPI Summary HPI Summary: A 47 y/o male presents to [facility] with a chief complaint of bilateral flank pain which worsened after his bowel movement today. The patient was in the ED last night and was given magnesium citrate and Dulcolax after his CXR showed constipation. He has been discharged and had a large BM. He returns to the ED with increased bilateral flank pain post his bowel movement. He rates his pain as a 9/10 in severity. - History of Current Complaint Chief Complaint: EDFlankPain Stated Complaint: "PAIN IS MUCH WORSE, JUST GOT DC'D" PER PT Time Seen by Provider: 05/17/18 05:26 Hx Obtained From: Patient Onset/Duration: Sudden Onset, Lasting Hours, Still Present Timing: Constant, Lasting Hours Severity Initially: Severe Severity Currently: Severe Pain Intensity: 9 Pain Scale Used: 0-10 Numeric Location: Flank Radiates: No Character: Other: - unable to describe Aggravating Factor(s): Nothing Alleviating Factor(s): Nothing Associated Signs And Symptoms: Negative: Fever, Nausea, Vomiting - Allergies/Home Medications Allergies/Adverse Reactions: Allergies Allergy/AdvReac Type Severity Reaction Status Date / Time No Known Allergies Allergy Verified 05/16/18 20:24 PMH/Surg Hx/FS Hx/Imm Hx Endocrine/Hematology History: Denies: Hx Diabetes Cardiovascular History: Denies: Hx Hypertension, Hx Pacemaker/ICD GI History: Reports: Other GI Disorders - Pancreatitis History: Denies: Hx Renal Disease Musculoskeletal History: Reports: Hx Arthritis - mild Sensory History: Reports: Hx Contacts or Glasses Denies: Hx Hearing Aid Opthamlomology History: Reports: Hx Contacts or Glasses Psychiatric History: Reports: Hx Depression, Hx Substance Abuse - Alcohol Denies: Hx Anxiety, Hx Attention Deficit Hyperactivity Disorder, Hx Eating Disorder, Hx Panic Disorder, Hx Post Traumatic Stress Disorder, Hx Inpatient Treatment, Hx Community Mental Health Tx, Hx Schizophrenia, Hx Bipolar Disorder , Hx Suicide Attempt, Hx of Violent Episodes Against Others, Other Psychiatric Issues/Disorders - Immunization History Date of Tetanus Vaccine: unknown Date of Influenza Vaccine: no Infectious Disease History: No Infectious Disease History: Denies: Hx Shingles, Traveled Outside the [place] in Last 30 Days - Family History Known Family History: Positive: Unknown - Pt is adopted - Social History Alcohol Use: Daily Alcohol Amount: last drink monday Substance Use Type: Reports: None Smoking Status (MU): Light Every Day Tobacco Smoker Type: Cigarettes Amount Used/How Often: 1/2-1 ppd Review of Systems Negative: Fever Positive: Abdominal Pain - flank pain. Negative: Vomiting, Nausea Positive: flank pain All Other Systems Reviewed And Are Negative: Yes Physical Exam - Summary Physical Exam Summary: VITAL SIGNS: Reviewed. GENERAL: Patient is a well-developed and nourished MALE who is lying comfortable in the stretcher. Patient is not in any acute respiratory distress. HEAD AND FACE: No signs of trauma. No ecchymosis, hematomas or skull depressions. No sinus tenderness. EYES: PERRLA, EOMI x 2, No injected conjunctiva, no nystagmus. EARS: Hearing grossly intact. Ear canals and tympanic membranes are within normal limits. MOUTH: Oropharynx within normal limits. NECK: Supple, trachea is midline, no adenopathy, no JVD, no carotid bruit, no c- spine tenderness, neck with full ROM. CHEST: Symmetric, no tenderness at palpation LUNGS: Clear to auscultation bilaterally. No wheezing or crackles. CVS: Regular rate and rhythm, S1 and S2 present, no murmurs or gallops appreciated. ABDOMEN: Soft, bilateral CVA tenderness. No signs of distention. No rebound no guarding, and no masses palpated. Bowel sounds are normal. EXTREMITIES: FROM in all major joints, no edema, no cyanosis or clubbing. NEURO: Alert and oriented x 3. No acute neurological deficits. Speech is normal and follows commands. SKIN: Dry and warm Triage Information Reviewed: Yes Vital Signs On Initial Exam: Initial Vitals Temp Pulse Resp BP Pulse Ox 98.3 F 86 20 139/102 97 05/17/18 05:08 05/17/18 05:08 05/17/18 05:08 05/17/18 05:08 05/17/18 05:08 Vital Signs Reviewed: Yes Diagnostics - Vital Signs Vital Signs Temp Pulse Resp BP Pulse Ox 05/17/18 05:08 98.3 F 86 20 139/102 97 - Laboratory Result Diagrams: 05/17/18 05:36 05/17/18 05:36 Lab Statement: Any lab studies that have been ordered have been reviewed, and results considered in the medical decision making process. Re-Evaluation - Re-Evaluation First Eval Re-Evaluation Time: 07:35 Change: Improved Comment: Pateint reports that pain is improving. He reports bilateral flank pain although upon physical exam, patient has more CVA tenderness on the right. Patient has chronic hematuria with no hydronephrosis or kidney stones seen. Patient reports that he missed his first appointment with Dr. Stevens. Abdominal Pain Male Course/Dx - Course Course Of Treatment: A 47 y/o male presents to [facility] with a chief complaint of bilateral flank pain which worsened after his bowel movement today. The patient was in the ED last night and was given magnesium citrate and Dulcolax after his CXR showed constipation. He has been discharged and had a large BM. He returns to the ED with increased bilateral flank pain post his bowel movement. The physical exam revealed bilateral CVA tenderness. In the ED course the patient was given Morphine IV, Reglan IV and Sodium Chloride IV. Bloodwork and chemistries obtained and are WNL. This patient will be signed out to Dr. Ni upon shift change pending CT abdomen pelvis and UA. - Diagnoses Provider Diagnoses: Pancreatic cyst, Flank pain Discharge - Sign-Out/Discharge Documenting (check all that apply): Sign-Out Patient Signing out patient TO: Get Ni - pending CT abdomen/pelvis and UA Patient Received Moderate/Deep Sedation with Procedure: No - Discharge Plan Condition: Stable Disposition: TRANS HIGHER LVL OF CARE FAC Referrals: Jenn Oliver MD [Primary Care Provider] - - Billing Disposition and Condition Condition: STABLE Disposition: Trans Higher Lvl of Care Fac - Attestation Statements Document Initiated by Scribe: Yes Documenting Scribe: Sundeep Randhawa Provider For Whom Cj is Documenting (Include Credential): Jo Ricardo MD Scribe Attestation: Sundeep Arredondo scribed for Jo Ricardo MD on 05/18/18 at 0618. Scribe Documentation Reviewed: Yes Provider Attestation: The documentation as recorded by the Sundeep godoy accurately reflects the service I personally performed and the decisions made by Eleazar moore MD Status of Scribe Document: Viewed
[2018-05-17 05:56] LABS: ABS Basophils 0.1 10^3/ul (0-0.2); ABS Eosinophils 0.3 10^3/ul (0-0.6); ABS Lymphocytes 1.6 10^3/ul (1.0-4.8); ABS Monocytes 0.5 10^3/ul (0-0.8); ABS Neutrophils 4.3 10^3/ul (1.5-7.7); ABS Nucleated RBC 0 10^3/ul; Hematocrit 45 % (36-46); Hemoglobin 15.2 g/dL (14.0-18.0); Lymphocyte % 23.5 %; Mean Corpuscular HGB Conc 34 g/dL (31-36); Mean Corpuscular Hemoglobin 31 pg (27-31); Mean Corpuscular Volume 93 fL (80-94); Mean Platelet Volume 8.1 fL (7.4-10.4); Nucleated Red Blood Cells % 0.1; Platelet Count 350 10^3/uL (150-450); Red Blood Count 4.87 10^6 /uL (4.18-5.48); Red Cell Distribution Width 13 % (10.5-15); White Blood Count 6.8 10^3/uL (3.5-10.8)
[2018-05-17 06:12] LABS: Albumin 4.6 g/dL (3.2-5.2); Albumin/Globulin Ratio 1.4 (1-3); BUN/Creatinine Ratio 18.3 (8-20); C Reactive Protein 4.05 mg/L (<8.01); Calcium 10.5 mg/dL (8.6-10.3); EGFR African American 142.7 (>60); EGFR Non-African American 117.9 (>60); Globulin 3.2 g/dL (2-4); Magnesium 2.5 mg/dL (1.9-2.7); Potassium 4.1 mmol/L (3.5-5.0); Total Bilirubin 0.6 mg/dL (0.2-1.0); Total Protein 7.8 g/dL (6.4-8.9)
--- NOTE | 2018-05-17 07:34 | ED ---
Progress - Progress Note Progress Note: Patient signed out from Dr. Ricardo, pending CT Abd/Pel, awaiting disposition. CT Abd/Pel, per radiologist, shows 1. Multiple cystic lesions with largest one in the body has increased in size since prior study, measuring 14 x 9.8 cm ( previously measured 10 x 7.7 cm). Redemonstration of multiple calcifications and dilatation of the pancreatic duct. 2. A small hiatal hernia. 3. Right inguinal hernia containing nondilated bowel loop, grossly unchanged since prior study. No obstruction. 4. Mildly distended gallbladder with no calcified stones. ED physician has reviewed this report. Re-Evaluation - Re-Evaluation First Eval Re-Evaluation Time: 07:35 Change: Improved Comment: Pateint reports that pain is improving. He reports bilateral flank pain although upon physical exam, patient has more CVA tenderness on the right. Patient has chronic hematuria with no hydronephrosis or kidney stones seen. Patient reports that he missed his first appointment with Dr. Stevens. Course/Dx - Course Course Of Treatment: 47 y/o M presents to [facility] complains of worsening bilateral flank pain for several days. Patient was signed out from Dr. Ricardo, awaiting CT Abd/Pel, pending disposition. CT Abd/Pel, per radiologist, shows 1. Multiple cystic lesions with largest one in the body has increased in size since prior study, measuring 14 x 9.8 cm (previously measured 10 x 7.7 cm). Redemonstration of multiple calcifications and dilatation of the pancreatic duct. 2. A small hiatal hernia. 3. Right inguinal hernia containing nondilated bowel loop, grossly unchanged since prior study. No obstruction. 4. Mildly distended gallbladder with no calcified stones. In ED course, patient was given Toradol. Discussed with Dr. Garcia, GI, who recommends admission to hospitalist and endoscopic US. Patient has poor follow up history as he has already missed his first appointment. There is concern that he would be discharged from GI based on his follow up history. There is conern for malignancy. Spoke with Dr. Menard, hospitalist, who agrees to admit patient. However, unable to provide endoscopic US services today. Patient will be transferred to [facility] instead of admission. Transfer was initiated at 0915. Spoke with [facility] at 0917 who later called back at 0938 to report that they were working on finding an admitting physician. Spoke with Dr. Abhijeet Kay, hospitalist at [facility], who agreed to accept patient. The patient will be transferred to [facility]. He is agreeable with this plan. - Diagnoses Provider Diagnoses: Pancreatic cyst, Flank pain - Provider Notifications Discussed Care Of Patient With: Geoffrey Garcia Time Discussed With Above Provider: 08:25 Instructed by Provider To: Other - Dr. Garcia, GI, recommended admitting patient to hospitalist for endoscopic ultrasound. He believed that time is of the essence and suspected strong possibility of malignancy. At 0830, Dr. Menard , hospitalist, is aware of patient and agrees to admit him. Discharge - Sign-Out/Discharge Documenting (check all that apply): Patient Departure - Transfer Patient Received Moderate/Deep Sedation with Procedure: No - Discharge Plan Condition: Stable Disposition: TRANS HIGHER LVL OF CARE FAC Referrals: Jenn Oliver MD [Primary Care Provider] - - Billing Disposition and Condition Condition: STABLE Disposition: Trans Higher Lvl of Care Fac - Attestation Statements Document Initiated by Scribe: Yes Documenting Scribe: Lorie Tenorio Provider For Whom Scribe is Documenting (Include Credential): Get Ni MD Scribe Attestation: Lorie Arredondo, scribed for Get Ni MD on 05/17/18 at 1039. Scribe Documentation Reviewed: Yes Provider Attestation: The documentation as recorded by the Lorie godoy accurately reflects the service I personally performed and the decisions made by Get moore MD Status of Scribe Document: Viewed
[2018-05-17] MEDS ORDERED: Ketorolac INJ* 30 MG/ML 1 ML VIAL IV PUSH ONE (09:21)
[2018-05-17] MEDS ORDERED: Nicotine Inhaler* 10 MG AMP INH ONE (09:22)
[2018-05-17] MEDS ORDERED: Mouth Piece, Nicotine* 1 EACH CARTRIDGE ONE (09:33)
[2018-05-17 10:49] LABS: Urine Appearance Cloudy; Urine Bacteria Absent (Absent); Urine Bilirubin Negative (Negative); Urine Blood Negative (Negative); Urine Color Yellow; Urine Glucose Negative (Negative); Urine Ketones 1+ (Negative); Urine Nitrite Negative (Negative); Urine Protein 2+(100 mg/dL) (Negative); Urine Red Blood Cell Trace(0-2/hpf) (Absent); Urine Specific Gravity 1.025 (1.010-1.030); Urine Squamous Epithelial Cell Present (Absent); Urine Urobilinogen Negative (Negative); Urine White Blood Cell Trace(0-5/hpf) (Absent)
[2018-05-17 11:05] VITALS: BP 141/97
== END 2018-05-17 11:00 | disposition short-term general hospital (02) ==
LOC: ED 05:06
DX: K86.2 Cyst of pancreas (principal); K44.9 Diaphragmatic hernia without obstruction or gangrene; K40.90 Unilateral inguinal hernia, without obstruction or gangrene, not specified as recurrent; K82.8 Other specified diseases of gallbladder; F17.210 Nicotine dependence, cigarettes, uncomplicated
CPT/HCPCS: 36415; 74176; 80053; 81003; 82150; 83605; 83690; 83735; 85025; 86140; 96361; 96374; 96375; 96376; 99285; A9270-GY; J1885; J2270; J2765